=== PATIENT | female | born 1935 | race Asian ===

== ENCOUNTER → 2018-05-13 | Outpatient (CLI) | payer BC ==
[~2018-05-13] MED LIST: AZATHIOPRINE50 MG PO; BENZONATATE100 MG PO; DAILY MULTIPLE1 EACH PO; MEMANTINE HCL10 MG PO; OMEGA-3100 MG PO; PRAVASTATIN SOD20 MG PO; PREDNISONE5 MG PO; PROTONIX40 MG PO; VITAMIN D31000 UNIT PO
== END | disposition home or self-care (01) ==
LOC: RAD 12:56
DX: J84.10 Pulmonary fibrosis, unspecified (principal); I70.0 Atherosclerosis of aorta; I25.10 Atherosclerotic heart disease of native coronary artery without angina pectoris; Z87.81 Personal history of (healed) traumatic fracture; Z98.82 Breast implant status
CPT/HCPCS: 71250